=== PATIENT | male | born 1990 | race Caucasian/White ===

== ENCOUNTER 2024-09-02 04:39 | Inpatient (IN) ==
--- NOTE | 2024-09-02 04:47 | ED Physician Documentation ---
History of Present Illness Stated complaint Stated Complaint: ETOH Chief complaint Chief Complaint: Neuro Additonal information Additional information: 34-year-old with history of alcohol use disorder presents with alcohol withdrawal. He recently was drinking up to 1/5 of vodka daily. He was admitted to [facility] on August 31 in the afternoon and started on CIWA. It seems he has since received a total of 5 mg lorazepam since then. However, he has been having wor sening hallucinations, tremor, and tachycardia, so he is transferred here for further evaluation. He reports a possible history of alcohol withdrawal seizures. At this time, he is trying to leave to go be the best man his friend's wedding. Meds/Allgy Allergies Allergies Allergy/AdvReac Type Severity Reaction Status Date / Time No Known Drug Allergies Allergy Verified 09/02/24 04:50 PFSH Active Problems All Active Problems (Updated 09/02/24 @ 05:39 by Ryan Myers MD) Elevated liver enzymes (Acute) Hypomagnesemia (Acute) Alcohol withdrawal syndrome with complication (Acute) Medical History Medical History ETOH abuse Surgical History Surgical History (Updated 09/02/24 @ 05:26 by Jocelyn Kemp RN) No pertinent past surgical history Social History Social History (Updated 09/02/24 @ 05:26 by Jocelyn Kemp RN) Smoking Status: Former smoker Relationship: Do you feel safe in your home environment?: Yes Suffered physical, verbal, emotional, or financial abuse?: No Exam Exam Vital Signs: Vital Signs x48h Temp Pulse Resp BP Pulse Ox 09/02/24 05:45 64 18 116/83 94 09/02/24 05:30 67 13 93 09/02/24 05:25 111 H 13 110/75 93 09/02/24 05:10 82 13 98 09/02/24 04:39 36.9 C 110 H 16 150/86 H 97 Restless and trying to get out of bed. Bilateral nystagmus. Significant tremor of the hands bilaterally. Tachycardic. Abdomen soft and nontender. Speech intact, oriented to person, place, and time. States he is trying to leave to go be the best man at his friend's wedding. Results Vitals Vitals: Vital Signs - 24 hr 09/02/24 04:39 09/02/24 05:10 09/02/24 05:25 Temperature 36.9 C Temperature Source Temporal Artery Scan Pulse Rate 110 H 82 111 H Respiratory Rate 16 13 13 Blood Pressure 150/86 H 110/75 O2 Saturation 97 98 93 O2 Source Room air Room air Room air Pain Intensity 0 0 0 09/02/24 05:30 09/02/24 05:45 Temperature Temperature Source Pulse Rate 67 64 Respiratory Rate 13 18 Blood Pressure 116/83 O2 Saturation 93 94 O2 Source Room air Room air Pain Intensity 0 Oxygen O2 Source Room air EKG (time done) 4:55: EKG releavant findings:: EKG personally interpreted by author of this note. Relevant findings are: Rate: Rate (enter#) (87) Rhythm: NSR [place]: Normal Intervals: Normal HI QRS: QRS normal Ischemia: Normal ST segments Labs Labs: Laboratory Tests 09/02/24 05:18 WBC 5.2 RBC 3.48 L Hgb 10.9 L Hct 32.7 L MCV 94.0 MCH 31.3 H MCHC 33.3 RDW 15.3 H Plt Count 134 MPV 10.3 Neut # (Auto) 3.9 Lymph # (Auto) 0.7 L Harlan # (Auto) 0.6 Eos # (Auto) 0.1 Baso # (Auto) 0.0 Absolute Nucleated RBC 0.00 Nucleated RBC % 0.0 Sodium 134 L Potassium 3.6 Chloride 100 L Carbon Dioxide 23 Anion Gap 11.0 BUN 9 Creatinine 0.6 Estimated GFR (MDRD) 155 Glucose 77 Calcium 9.4 Magnesium 1.3 L Total Bilirubin 1.2 H AST 183 H ALT 84 H Alkaline Phosphatase 63 Total Protein 6.6 Albumin 4.2 Globulin 2.4 Albumin/Globulin Ratio 1.8 Ethyl Alcohol < 10.0 PD Medical Decision Making ED course ED course: Presents from [facility] Detox facility for worsening alcohol withdrawal symptoms. Upon arrival here, he is tremulous, tachycardic, and hallucinating. He was given 10 mg IV diazepam and 2 mg IV haloperidol with improvement of his symptoms. Hypomagnesemia was noted on labs, and repleted with 2 g of magnesium IV. He was admitted to the hospital for complicated alcohol withdrawal syndr ome. Discharge Plan Discharge Patient Disposition: 67 [facility] DC/Xfer Clinical Impression: Alcohol withdrawal syndrome with complication, Hypomagnesemia, Elevated liver enzymes Print Language: Greenlandic
[2024-09-02] MEDS: LACTATED RINGERS 1,000 ML IV STA (05:10)
[2024-09-02] MEDS: diazePAM INJ 5 MG/ML SYRINGE IVP STA (05:11)
[2024-09-02] MEDS: HALOPERIDOL 5 MG/ML VIAL IVP STA (05:12)
[2024-09-02 05:23] LABS: BASOPHILS % (AUTO) 0.6 %; EOSINOPHILS # (AUTO) 0.1 10^3/uL (0.0-0.7); HCT - HEMATOCRIT 32.7 % (42.0-52.0); HGB - HEMOGLOBIN 10.9 g/dL (14.0-18.0); LYMPHOCYTES # (AUTO) 0.7 10^3/uL (1.5-3.5); LYMPHOCYTES % (AUTO) 13.2 %; MEAN CORPUSCULAR HEMOGLOBIN 31.3 pg (27.0-31.0); MEAN CORPUSCULAR HGB CONC 33.3 g/dL (32.0-36.0); MEAN PLATELET VOLUME 10.3 fL (7.4-11.4); MONOCYTES # (AUTO) 0.6 10^3/uL (0.0-1.0); MONOCYTES % (AUTO) 10.9 %; NEUTROPHILS # (AUTO) 3.9 10^3/uL (1.5-6.6); NEUTROPHILS % (AUTO) 74.1 %; PLT - PLATELET COUNT 134 10^3/uL (130-450); RED BLOOD COUNT 3.48 10^6/uL (4.70-6.10); RED CELL DISTRIBUTION WIDTH 15.3 % (12.0-15.0); WHITE BLOOD COUNT 5.2 x10^3/uL (4.8-10.8)
[2024-09-02 05:29] LABS: MAGNESIUM 1.3 mg/dL (1.7-2.3)
[2024-09-02 05:35] LABS: ALBUMIN 4.2 g/dL (3.2-5.5); ALBUMIN/GLOBULIN RATIO 1.8 (1.0-2.2); ALKALINE PHOSPHATASE 63 IU/L (42-121); ALT ALANINE AMINOTRANSFERASE 84 IU/L (10-60); AST ASPARTATE AMINOTRANSFERASE 183 IU/L (10-42); BILIRUBIN,TOTAL 1.2 mg/dL (0.2-1.0); BUN - BLOOD UREA NITROGEN 9 mg/dL (6-20); CALCIUM 9.4 mg/dL (8.5-10.3); CARBON DIOXIDE - CO2 23 mmol/L (21-32); CHLORIDE 100 mmol/L (101-111); CREATININE 0.6 mg/dL (0.6-1.3); ETOH - ETHANOL < 10.0 mg/dL; GFR - MDRD 155 (>89); GLUCOSE 77 mg/dL (74-104); POTASSIUM 3.6 mmol/L (3.5-4.5); SODIUM 134 mmol/L (135-145); TOTAL PROTEIN 6.6 g/dL (6.4-8.9)
[2024-09-02] MEDS: THIAMINE INJ 100 MG, FOLIC ACID INJ 1 MG in SODIUM CHLORIDE 0.9% 1,000 ML IV STA (05:42)
[2024-09-02] MEDS: MAGNESIUM SULFATE 1 GM/2 ML VIAL IVP STA (05:43)
[2024-09-02] MEDS ORDERED: THIAMINE 100 MG/1 ML 2 ML MDV ONE ×2 (05:45→06:22)
[2024-09-02] MEDS: MAGNESIUM SULFATE 2 GRAM 2 GM/50 ML BAG IV SCH (05:46)
[2024-09-02] MEDS ORDERED: LORazepam 2 MG/ML VIAL IVP PRN (05:57)
--- NOTE | 2024-09-02 06:04 | HISTORY & PHYSICAL EXAMINATION ---
Chief Complaint Chief Complaint Chief Complaint: Alcohol withdrawl History of Present Illness History of Present Illness HPI Comment/Other: 34 y old male with PMH alcohol abuse brought in to the ER from outpatient drug rehab facility due to tremors, shakiness and alcohol withdrawl. Per ER physician, pt was hallucinating and tachycardic, IN ER, pt was given valium and haldol iv . Pt is confused and uanble to provide any histiory at this time Labs showed low magnesium which was replaced in ER Pt is admitted due to alcohol withdrawl Review of Systems Status of ROS: unobtainable due to mental status PFSH Active Problems All Active Problems (Updated 09/02/24 @ 05:39 by Ryan Myers MD) Elevated liver enzymes (Acute) Hypomagnesemia (Acute) Alcohol withdrawal syndrome with complication (Acute) Medical History Medical History ETOH abuse Surgical History Surgical History (Updated 09/02/24 @ 05:26 by Jocelyn Kemp RN) No pertinent past surgical history Social History Social History (Updated 09/02/24 @ 05:26 by Jocelyn Kemp RN) Smoking Status: Former smoker Relationship: Do you feel safe in your home environment?: Yes Suffered physical, verbal, emotional, or financial abuse?: No Meds/Allgy Allergies Allergies Allergy/AdvReac Type Severity Reaction Status Date / Time No Known Drug Allergies Allergy Verified 09/02/24 04:50 Exam Exam Vital Signs: Vital Signs x48h Temp Pulse Resp BP Pulse Ox 09/02/24 05:45 64 18 116/83 94 09/02/24 05:30 67 13 93 09/02/24 05:25 111 H 13 110/75 93 09/02/24 05:10 82 13 98 09/02/24 04:39 36.9 C 110 H 16 150/86 H 97 Constitutional normal general appearance HENMT normocephalic Eyes conjunctivae normal Chest inspection of chest normal Respiratory breath sounds equal bilaterally Cardiovascular normal heart rate noted Gastrointestinal abdomen normal to inspection Extremities normal to inspection Neurology Pt appears confused Skin no rash Conclusion/Plan Problem List (1) Alcohol withdrawal syndrome with complication: Plan: A: Alcohol withdrawl Hallucinations Tremors Hypomagnesemia Acute encephalopathy Plan: Admit to med surg with tele Start alcohol withdrawl protocol Replace mag Monitor electrolytes NPO Swallow eval start NS @ 100 cc/h DVT prophylaxic: SCD Full code Pt is admitted as inpatient as more than 2 midnight stay is expected Lab Results 09/02/24 05:18 09/02/24 05:18
[2024-09-02 06:18] LABS: INR 1.2 (0.8-1.2); PT - PROTHROMBIN TIME 12.9 secs (9.9-12.6)
[2024-09-02] MEDS: THIAMINE INJ 100 MG in SODIUM CHLORIDE 0.9% 50 ML IV STA (06:20)
[2024-09-02] MEDS: THIAMINE INJ 500 MG in SODIUM CHLORIDE 0.9% 50 ML IV STA (06:26)
[2024-09-02] MEDS ORDERED: ONDANSETRON 4 MG/2 ML VIAL IVP PRN (09:02)
[2024-09-02] MEDS: diazePAM 5 MG TABLET PO SCH ×2 (09:12→21:19)
[2024-09-02] MEDS: LORazepam 2 MG/ML VIAL IVP PRN ×2 (09:12→20:45)
[2024-09-02] MEDS: SODIUM CHLORIDE 0.9% 1,000 ML IV SCH (09:13)
[2024-09-02] MEDS: FAMOTIDINE 20 MG/2 ML VIAL IVP SCH (09:13)
[2024-09-02] MEDS: MULTIVITAMIN 10 ML, THIAMINE INJ 100 MG, FOLIC ACID INJ 1 MG in SODIUM CHLORIDE 0.9% 1,... IV SCH (09:13)
[2024-09-02] MEDS: SODIUM CHLORIDE FLUSH 0.9% 10 ML SYRINGE IVP SCH (09:15)
[2024-09-02 12:28] LABS: THC CANNABINOID SCREEN, URINE POSITIVE (NEGATIVE)
[2024-09-02 12:29] LABS: AMPHETAMINE SCREEN,URINE NEGATIVE (NEGATIVE); BARBITURATE SCREEN,UR NEGATIVE (NEGATIVE); BENZODIAZEPINES SCREEN, URINE POSITIVE (NEGATIVE); BUPRENORPHINE SCREEN, URINE NEGATIVE (NEGATIVE); COCAINE SCREEN URINE NEGATIVE (NEGATIVE); METHADONE SCREEN, URINE NEGATIVE (NEGATIVE); METHAMPHETAMINES SCREEN, URINE NEGATIVE (NEGATIVE); OPIATE SCREEN, URINE NEGATIVE (NEGATIVE); OXYCODONE SCREEN, URINE NEGATIVE (NEGATIVE); TRICYCLIC ANTIDEPRESSANT,URINE NEGATIVE (NEGATIVE)
[2024-09-02] MEDS: SODIUM CHLORIDE FLUSH 0.9% 10 ML SYRINGE IVP PRN (20:46)
[2024-09-02] MEDS: LACTATED RINGERS 1,000 ML IV SCH (21:19)
[2024-09-03] MEDS ORDERED: DEXMEDETOMIDINE 400 MCG/100 ML 100 ML IV PRN (00:49)
[2024-09-03] MEDS: chlordiazePOXIDE 25 MG CAPSULE PO SCH (00:57)
[2024-09-03 07:56] LABS: HCT - HEMATOCRIT 34.2 % (42.0-52.0); MEAN CORPUSCULAR HEMOGLOBIN 31.6 pg (27.0-31.0); MEAN CORPUSCULAR HGB CONC 32.2 g/dL (32.0-36.0); MEAN CORPUSCULAR VOLUME 98.3 fL (80.0-94.0); MEAN PLATELET VOLUME 10.6 fL (7.4-11.4); RED BLOOD COUNT 3.48 10^6/uL (4.70-6.10); RED CELL DISTRIBUTION WIDTH 15.2 % (12.0-15.0); WHITE BLOOD COUNT 5.3 x10^3/uL (4.8-10.8)
[2024-09-03 08:26] LABS: ALBUMIN 4.1 g/dL (3.2-5.5); ALBUMIN/GLOBULIN RATIO 1.8 (1.0-2.2); BILIRUBIN,TOTAL 1.1 mg/dL (0.2-1.0); CALCIUM 8.9 mg/dL (8.5-10.3); CREATININE 0.6 mg/dL (0.6-1.3); MAGNESIUM 1.7 mg/dL (1.7-2.3); POTASSIUM 3.4 mmol/L (3.5-4.5); TOTAL PROTEIN 6.4 g/dL (6.4-8.9)
[2024-09-03] MEDS: PRENATAL VITAMIN TABLET PO SCH (08:47)
[2024-09-03] MEDS: diazePAM 5 MG TABLET PO SCH (08:47)
[2024-09-03] MEDS: THIAMINE 100 MG TABLET PO SCH (08:47)
[2024-09-03] MEDS: LORazepam 1 MG TABLET PO PRN ×3 (09:07→18:07)
--- NOTE | 2024-09-03 09:24 | PROVIDER PROGRESS NOTE ---
Current Medications Current Medications Current Medications: Current Medications Generic Name Dose Route Start Last Admin Trade Name Freq PRN Reason Stop Dose Admin Diazepam 5 mg 09/03/24 09:00 09/03/24 08:47 Diazepam 5 Mg Tablet PO 5 mg BID PARK Administration Famotidine 20 mg 09/02/24 09:02 09/03/24 08:47 Famotidine 20 Mg/2 Ml Vial IVP 20 mg BID PARK Administration Lorazepam 2 - 20 mg 09/02/24 19:37 09/03/24 01:51 Lorazepam 2 Mg/Ml Vial IVP 4 mg Q15M PRN Administration RASS > 0 Protocol Lorazepam 2 - 20 mg 09/03/24 08:17 09/03/24 09:07 Lorazepam 1 Mg Tablet PO 2 mg Q15M PRN Administration RASS > 0 Protocol Ondansetron HCl 4 mg 09/02/24 09:02 Ondansetron 4 Mg/2 Ml Vial IVP Q6HR PRN Nausea / Vomiting Multivit/Folic Acid/Iron 1 tab 09/03/24 09:00 09/03/24 08:47 Vitamin Tablet PO 1 tab DAILYWM PARK Administration Sodium Chloride 10 ml 09/02/24 09:02 09/02/24 21:20 Sodium Chloride Flush 0.9% 10 Ml Syringe IVP 10 ml PRN PRN Administration NEEDED PER PROVIDER ORDERS Sodium Chloride 10 ml 09/02/24 09:02 09/03/24 08:48 Sodium Chloride Flush 0.9% 10 Ml Syringe IVP 10 ml 0100,0900,1700 PARK Administration Thiamine HCl 100 mg 09/03/24 09:00 09/03/24 08:47 Thiamine 100 Mg Tablet PO 100 mg DAILY PARK Administration Objective Vital Signs/Intake & Output Vital Signs: Vital Signs x48h Temp Pulse Resp BP Pulse Ox 09/03/24 09:00 65 21 131/94 H 09/03/24 08:00 98.4 F 69 16 117/93 H 99 09/03/24 07:00 53 L 15 127/83 09/03/24 06:00 56 L 17 129/88 09/03/24 05:00 55 L 18 119/86 09/03/24 04:11 98.4 F 53 L 17 130/92 H 98 09/03/24 03:00 53 L 16 132/85 H 09/03/24 02:00 54 L 20 148/75 H 95 Intake & Output: Intake & Output 08/31/24 09/01/24 09/02/24 09/03/24 23:59 23:59 23:59 23:59 Intake Total 2755.2 / 2755.2 1595 / 1595 Output Total 825 / 825 1250 / 1250 Balance 1930.2 / 1930.2 345 / 345 Weight (kg) 65.5 kg Lab Results 09/03/24 07:48 09/03/24 07:48 Other Labs: Lab Results x24hrs 09/03/24 09/02/24 09/02/24 Range/Units 07:48 19:50 12:04 WBC 5.3 (4.8-10.8) x10^3/uL RBC 3.48 L (4.70-6.10) 10^6/uL Hgb 11.0 L (14.0-18.0) g/dL Hct 34.2 L (42.0-52.0) % MCV 98.3 H (80.0-94.0) fL MCH 31.6 H (27.0-31.0) pg MCHC 32.2 (32.0-36.0) g/dL RDW 15.2 H (12.0-15.0) % Plt Count 139 (130-450) 10^3/uL MPV 10.6 (7.4-11.4) fL Sodium 137 (135-145) mmol/L Potassium 3.4 L (3.5-4.5) mmol/L Chloride 104 (101-111) mmol/L Carbon Dioxide 24 (21-32) mmol/L Anion Gap 9.0 (6-13) BUN 5 L (6-20) mg/dL Creatinine 0.6 (0.6-1.3) mg/dL Estimated GFR (MDRD) 155 (>89) Glucose 75 (74-104) mg/dL Calcium 8.9 (8.5-10.3) mg/dL Magnesium 1.7 (1.7-2.3) mg/dL Total Bilirubin 1.1 H (0.2-1.0) mg/dL AST 138 H (10-42) IU/L ALT 71 H (10-60) IU/L Alkaline Phosphatase 60 (42-121) IU/L Total Protein 6.4 (6.4-8.9) g/dL Albumin 4.1 (3.2-5.5) g/dL Globulin 2.3 (2.1-4.2) g/dL Albumin/Globulin Ratio 1.8 (1.0-2.2) Nasal Screen MRSA (PCR) NEGATIVE (NEGATIVE) Urine Opiates Screen NEGATIVE (NEGATIVE) Ur Buprenorphine Scrn NEGATIVE (NEGATIVE) Ur Oxycodone Screen NEGATIVE (NEGATIVE) Urine Methadone Screen NEGATIVE (NEGATIVE) Ur Barbiturates Screen NEGATIVE (NEGATIVE) Ur Tricyclics Screen NEGATIVE (NEGATIVE) Ur Phencyclidine Scrn NEGATIVE (NEGATIVE) Ur Amphetamine Screen NEGATIVE (NEGATIVE) U Methamphetamines Scrn NEGATIVE (NEGATIVE) U Benzodiazepines Scrn POSITIVE H (NEGATIVE) Urine Cocaine Screen NEGATIVE (NEGATIVE) U Cannabinoids Screen POSITIVE H (NEGATIVE) Ur Drug Screen Comment CUTOFF CONC BELOW: Assessment/Plan Problem List (1) Alcohol withdrawal syndrome with complication:
--- NOTE | 2024-09-03 11:53 | PHARMACY PROGRESS NOTE ---
Best Possible Medication History Admit Date and Time: 09/02/24 [id number] Home Medications Medication Instructions Recorded Confirmed Type No Known Home Medications 09/03/2412/20 History Processed by: Pharmacy (Medication reconciliation completed by Electrical Controls AssemblerZandra) Medications reviewed in ED?: No Medication History completed: Yes Patient Interview: Completed Secondary Source(s): Insurance records [facility] Statement: As the person ultimately responsible for medication therapy, providers are able to order a medication from an existing home medication list in [facility] via the "Reconcile Routine" prior to Confirmation of that medication by java support engineer. Such practice is discouraged except when the physician, in their clinical judgment, deems that a medical need exists for a medication without regard to previous use.
[2024-09-03] MEDS: MAGNESIUM OXIDE 400 MG TABLET PO SCH (12:04)
[2024-09-03] MEDS: POTASSIUM CHLORIDE 20 MEQ TABLET PO SCH ×2 (12:04→14:49)
--- NOTE | 2024-09-03 15:40 | PROVIDER PROGRESS NOTE ---
Subjective Prog Note Date Prog Note Date: 09/03/24 Prog Note Time: 16:42 Subjective Pt reports feeling: Improved Subjective: 34 year old male with PMHx of alcohol abuse presents from [facility] 09/02/24 for alcohol withdrawal symptoms. Patient initially presented with worsening hallucinations, tremors, tachycardia. Patient was given 10mg IV diazepam and 2mg IV haloperidol in the ER with managent of symptoms. Currently on diazepam 5mg PO BID and lorazepam 2mg Q4hrs PRN. Patient states he is feeling better compared to initial presentation. Denies diaphoresis. States tremors have improved and admits to vivid nightmares but denies visual/auditory hallucinations. States he is overall feeling less anxious. Reports last drink was prior to entering [facility], where he entered with a KIP of 0.29 (per patient). States he is ready to give up alcohol as it has caused him to lose jobs, his girlfriend, and his apartment. States he is currently living with his dad, who will drink about 10 black russians a day. [facility] dad has not been the best support system after recent life changes and has contributed to him drinking more alcohol. States he was drinking 10-12 drinks a day, noting drinks as long pulls from either a handle of Vodka or Fireball. Patient is hesitant to enter a 30 day facility as he adamantly expresses his need to find a job and pay his bills. Current Medications Current Medications Current Medications: Current Medications Generic Name Dose Route Start Last Admin Trade Name Freq PRN Reason Stop Dose Admin Diazepam 5 mg 09/03/24 09:00 09/03/24 08:47 Diazepam 5 Mg Tablet PO 5 mg BID PARK Administration Famotidine 20 mg 09/02/24 09:02 09/03/24 08:47 Famotidine 20 Mg/2 Ml Vial IVP 20 mg BID PARK Administration Lorazepam 2 - 20 mg 09/03/24 11:06 09/03/24 14:47 Lorazepam 1 Mg Tablet PO 6 mg Q4HR PRN Administration RASS > 0 Protocol Magnesium Oxide 400 mg 09/03/24 11:00 09/03/24 12:04 Magnesium Oxide 400 Mg Tablet PO 09/03/24 17:01 400 mg Q6H PARK Administration Protocol Ondansetron HCl 4 mg 09/02/24 09:02 Ondansetron 4 Mg/2 Ml Vial IVP Q6HR PRN Nausea / Vomiting Multivit/Folic Acid/Iron 1 tab 09/03/24 09:00 09/03/24 08:47 Vitamin Tablet PO 1 tab DAILYWM PARK Administration Sodium Chloride 10 ml 09/02/24 09:02 09/02/24 21:20 Sodium Chloride Flush 0.9% 10 Ml Syringe IVP 10 ml PRN PRN Administration NEEDED PER PROVIDER ORDERS Sodium Chloride 10 ml 09/02/24 09:02 09/03/24 08:48 Sodium Chloride Flush 0.9% 10 Ml Syringe IVP 10 ml 0100,0900,1700 PARK Administration Thiamine HCl 100 mg 09/03/24 09:00 09/03/24 08:47 Thiamine 100 Mg Tablet PO 100 mg DAILY PARK Administration Objective Vital Signs/Intake & Output Reviewed Vital Signs: Yes Vital Signs: Vital Signs x48h Temp Pulse Resp BP Pulse Ox 09/03/24 15:00 76 18 135/96 H 96 09/03/24 14:00 67 15 130/83 95 09/03/24 13:00 74 18 120/82 94 09/03/24 12:00 37.2 C 123 H 24 132/97 H 97 09/03/24 11:00 70 17 114/93 H 09/03/24 10:42 97 09/03/24 10:00 77 16 129/93 H 09/03/24 09:00 65 21 131/94 H 09/03/24 08:00 36.9 C 69 16 117/93 H 99 Intake & Output: Intake & Output 08/31/24 09/01/24 09/02/24 09/03/24 23:59 23:59 23:59 23:59 Intake Total 2755.2 / 2755.2 1984 Output Total 825 / 825 1750 / 1750 Balance 1930.2 / 1930.2 235 / 235 Weight (kg) 65.5 kg Objective General Appearance: positive Alert and Mild distress Eyes Bilateral: positive Normal inspection, PERRL, EOMI and No scleral icterus Neck: positive Nml inspection Respiratory: positive Chest non-tender, No respiratory distress and Breath sounds nml Cardiovascular: positive Regular rate & rhythm, No murmur and No gallop Abdomen: positive Non-tender, No organomegaly and Nml bowel sounds Back: positive Nml inspection Skin: positive Color nml and Other (Ecchymosis noted to B/L shins around knee cap. ) Extremities: positive Non-tender; negative Calf tenderness Neurologic/Psychiatric: positive Oriented x3 and Other (Mildly restless. Improving tremor of hands that will occasionally be distractable. ) Lab Results 09/03/24 07:48 09/03/24 07:48 Other Labs: Lab Results x24hrs 09/03/24 09/02/24 Range/Units 07:48 19:50 WBC 5.3 (4.8-10.8) x10^3/uL RBC 3.48 L (4.70-6.10) 10^6/uL Hgb 11.0 L (14.0-18.0) g/dL Hct 34.2 L (42.0-52.0) % MCV 98.3 H (80.0-94.0) fL MCH 31.6 H (27.0-31.0) pg MCHC 32.2 (32.0-36.0) g/dL RDW 15.2 H (12.0-15.0) % Plt Count 139 (130-450) 10^3/uL MPV 10.6 (7.4-11.4) fL Sodium 137 (135-145) mmol/L Potassium 3.4 L (3.5-4.5) mmol/L Chloride 104 (101-111) mmol/L Carbon Dioxide 24 (21-32) mmol/L Anion Gap 9.0 (6-13) BUN 5 L (6-20) mg/dL Creatinine 0.6 (0.6-1.3) mg/dL Estimated GFR (MDRD) 155 (>89) Glucose 75 (74-104) mg/dL Calcium 8.9 (8.5-10.3) mg/dL Magnesium 1.7 (1.7-2.3) mg/dL Total Bilirubin 1.1 H (0.2-1.0) mg/dL AST 138 H (10-42) IU/L ALT 71 H (10-60) IU/L Alkaline Phosphatase 60 (42-121) IU/L Total Protein 6.4 (6.4-8.9) g/dL Albumin 4.1 (3.2-5.5) g/dL Globulin 2.3 (2.1-4.2) g/dL Albumin/Globulin Ratio 1.8 (1.0-2.2) Nasal Screen MRSA (PCR) NEGATIVE (NEGATIVE) Assessment/Plan Problem List (1) Alcohol withdrawal syndrome with complication: Impression: -Patient initially presented 09/02/24 from [facility] outpatient detox, entered on 08/31/24, with complicated alcohol withdrawal. He was given 10mg IV diazepam and 2mg IV haloperidol with management of symptoms. Patient is still moderately tremulous and mildly hypertensive but currently without visual/auditory hallucinations, disorientation, hyperthermia, or diaphoresis. -Current CIWA score is 6 and patient is occasionally agitated but redirectable. No evidence of seizure activity and both magnesium and thiamine have been supplemented. Patient to continue diazepam 5mg PO BID with expectation to transition to QD tomorrow as tolerated. Continue Lorazepam 20mg Q4H PRN. Patient was counseled benefits of 30 day rehabilitation after discharge for sustainable success with alcohol abstinence. (2) Hypomagnesemia: Impression: -Likely secondary to alcohol-induced tubular dysfunction. Magnesium has been replaced and hypomagnesemia resolved on repeat labs today (1.3 to 1.7). Will continue to monitor. (3) Elevated liver enzymes: Impression: -Most likely secondary to alcohol dependency. Values have improved over the last 24 hours. Continue to monitor. (4) Hypokalemia: Impression: -Likely due to nutritional deficiency from alcohol abuse. Patient ordered 20 meq Potassium Chloride PO Q2h. Will monitor.
[2024-09-03] MEDS: cloNIDine 0.1 MG TABLET PO ONE (17:06)
[2024-09-03] MEDS: GABAPENTIN 300 MG CAPSULE PO SCH (18:07)
[2024-09-03 19:54] LABS: POTASSIUM 4.3 mmol/L (3.5-4.5)
[2024-09-04 04:51] LABS: CALCIUM 9.3 mg/dL (8.5-10.3); CREATININE 0.5 mg/dL (0.6-1.3); POTASSIUM 3.8 mmol/L (3.5-4.5)
[2024-09-04 05:00] LABS: CALCIUM, IONIZED 1.23 mmol/L (1.09-1.30); VBG PH 7.426 (7.31-7.41)
[2024-09-04 05:28] LABS: PHOSPHORUS 5.2 mg/dL (2.5-5.0)
[2024-09-04] MEDS: POTASSIUM CHLORIDE 20 MEQ TABLET PO ONE (08:00)
--- NOTE | 2024-09-04 10:55 | TELEPSYCH PHYS NOTE ---
[facility] Tele[facility] Consult Consult Date: 09/04/24 Name of Referring Provider:: Estevan Romo Reason for Consult: Complicated W/D Suicide Risk Sreening (ASQ Tool) In the past few weeks, have you wished you were ?: No In the past few weeks, have you felt that you or your family would be better off if you were ?: No In the past week, have you been having thoughts about killing yourself?: No Have you ever tried to kill yourself?: No Assessment Language: St Helen[place] Route Service Manager Required: No Cultural, Yazidism or Spiritual Preferences: None mentioned Chief Complaint: Patient states, "Alcohol abuse." History of Present Illness: Patient endorses that he is here because he was having some very hard to manage medical concerns while in detox and so was brought to the hospital. 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 He has been trying to get a job but has not been getting any calls back. He has limited connections here and they are sober. He notes that this may be a good thing now, as he would like to stop drinking. He says that he is 8/10 for wanting to stop drinking at this time. "To get to a 10 would mean "not having the shakes, to get to a 9/10 it would be not spending so much money on alcohol." He is at a 5 in terms of his feeling that he can do it. He feels the habit of it is just very hard to break. He has been drinking daily for 15 years."I have wanted to stop and have tried to lower myself down but that has not worked." He has never done treatment before and he is going to go now. If 10 is the worst he would rate his level of depression at a 6/10, and his anxiety at a 6/10. He tends to worry most is finances, because he has a lot of debt. He has no job and has been looking. He was recently evicted which he blames on his roommate's gambling. He also broke up with his girlfriend. He used to work at [employer] in [employer]. When asked about his sleep, he says, "I sleep fine. It is tough for me to get to sleep. Once I get to sleep, everything is fine." He says that he is eating well. Patient says that he recently had AVH "for the first time." This happened as part of the withdrawal here at the hospital. Suicide Ideation - Homicide Ideation - Self Harm: SI- Denies HI- Denies Self-harm- Denies Psychiatric History - Treatment History: DX- Alcohol abuse - no OP IP or meds in the past Community Resources Accessed: None Family Psych History/ History of suicide: Grandmother -dementia Medication & Allergies Ambulatory Orders Medication Instructions Recorded Confirmed No Known Home Medications 09/03/2412/20 Allergies Allergy/AdvReac Type Severity Reaction Status Date / Time No Known Drug Allergies Allergy Verified 09/02/24 04:50 Drug & Alcohol History Does patient have Drug/ETOH history or addictive behavior?: Yes Use: Uses substance without health or social issues: Amphetamine and Cocaine Use Issues: Intoxication, Delirium and Sleep Disorder Abuse: Recurrent use of substance despite neg consequences: Alcohol Abuse Issues: Intoxication, Delirium and Sleep Disorder Dependence: Experiences withdrawal or developed tolerances: Alcohol Dependence Issues: Intoxication, Delirium, Sleep Disorder and Withdrawal Trauma History of trauma, abuse, neglect, or exploitation (Notes): Denies Personal Information Does the patient have a history or present tendencies for violence?: None History or present tendencies for violence (Notes): Denies Services History: Denies Does patient have any Legal Charges or Investigations?: No Legal Charges or Investigations (Notes): Denies Environment & Living Situation - Social, Peer-Group (Note): At home Environment & Living Situation - Social, Peer-Group (Notes): with dad Few close social supports or friends but they are sober Marital Status - Family Circumstances: Never , no children Stressors - Financial Concerns: See HPI 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[employer] Collateral - Interdisciplinary Input: Hospital notes/records reviewed Medical History Psychiatric: reports Depression Neurological: reports None Eyes, Ears, Nose, Throat: reports None Cardiovascular: reports None Respiratory: reports None Gastrointestinal: reports None Urinary: reports None ESOL TEACHER: reports None Musculoskeletal: reports None Skin: reports None Mental Status Exam Appearance and Attire: reclining in a chair in a hospital gown to talk with provider Attitude and Behavior: Calm and cooperative Speech: Appropriate rate, tone and volume Affect and Mood: Moderate depression and anxiety reported and affect is appropriate to situation Association and Thought Process: Logical and linear Thought Content: No evidence of any obsessions of delusions Perception: Denies any current AVH and none noted Sensorium, memory and orientation: Alert and oriented x 4 Intellectual - Cognitive functioning: No deficits noted Insight and Judgement: Insight is good and judgment good at this time Emotional and Behavioral Functioning: Limited distress tolerance skills, self medicating with alcohol Ability to Self-Care: Fair Personal Goals Short-term Goals: "sobriety" Long-term Goals: friends Risk/Protective Factors Risk Factors: Trigger events leading to humiliation, shame and/or despair, Substance intoxication or withdrawal, Social Isolation and Perceived burden on other Protective Factors / Internal: Identifies reasons for living Protective Factors / External: Supportive social network of family or friends Plan Impression/Risk Assessment: This patient is a 34-year-old male who is coming into the emergency room after being medically discharged from his detox center due to complicated withdrawal symptoms. Patient states that he is feeling committed at this time to getting treatment and getting sober after 15 years of drinking daily. Patient states that he has tried to cut down on his own unsuccessfully. He recently moved in with his father due to financial concerns and has had difficulties finding a job here. He also reports very limited support systems in the area, though it is the area he grew up and he has not been in touch with many of his friends from there. Patient does have a couple of friends there who are sober which he acknowledges will be a good thing in his future if he is to maintain sobriety. Patient does state that his father is a drinker however his father has made mention that him getting help might inspire him to also get help. This patient has no history of mental health treatment and is reporting only moderate depression and anxiety related to his situation financially. He denies any suicidal ideation, homicidal ideation or auditory or visual hallucinations. Treatment - Therapy Recommendations: This patient would like to attend a residential treatment program for treatment of his alcohol use disorder. Patient is feeling moderately confident that he can do it while he is feeling motivated at an 8 out of 10 to make the changes he needs to to maintain sobriety. Pharmacological Recommendations: None at this time. Problem List (1) Alcohol withdrawal syndrome with complication: (2) Hypomagnesemia: (3) Elevated liver enzymes: (4) Hypokalemia: Time Spent & Provider Location Telepsych consultation conducted via videoconferencing: Yes List names and roles of persons who participated in consult: ARNOLDO Majano Telepsych Provider Location: [place], [place] Time Spent (Minutes): 60 PFSH Active Problems All Active Problems (Updated 09/03/24 @ 16:49 by Michael Huerta) Hypokalemia (Acute) Elevated liver enzymes (Acute) Hypomagnesemia (Acute) Alcohol withdrawal syndrome with complication (Acute) Medical History Medical History ETOH abuse Surgical History Surgical History (Updated 09/02/24 @ 05:26 by Jocelyn Kemp RN) No pertinent past surgical history Social History Social History (Updated 09/02/24 @ 05:26 by Jocelyn Kemp, RN) Smoking Status: Current some day smoker Number of Years Smoked: 15 How many cigarettes a day do you smoke? (20 cigarettes=1 Pk): 1 Second hand tobacco smoke exposure: Yes Do you dip or chew tobacco?: Yes Do you vape?: No Patient requests smoking cessation consult: No Initiate information on smoking cessation: No Relationship: Do you feel safe in your home environment?: Yes Suffered physical, verbal, emotional, or financial abuse?: No Substance Use: declined to answer
--- NOTE | 2024-09-04 14:03 | PROVIDER PROGRESS NOTE ---
Subjective Prog Note Date Prog Note Date: 09/04/24 Prog Note Time: 14:01 Subjective Pt reports feeling: Improved Subjective: Patient is feeling better with improvement in tremors. However, he is having difficulty with gait and unsteady on his feet. He also admits to continued intermittent episodes of visual hallucinations, possibly after effects of vivid nightmares. Current Medications Current Medications Current Medications: Current Medications Generic Name Dose Route Start Last Admin Trade Name Freq PRN Reason Stop Dose Admin Famotidine 20 mg 09/04/24 21:00 Famotidine 20 Mg Tablet PO BID PARK Gabapentin 300 mg 09/03/24 18:00 09/04/24 05:44 Gabapentin 300 Mg Capsule PO 300 mg TID PARK Administration Ondansetron HCl 4 mg 09/02/24 09:02 Ondansetron 4 Mg/2 Ml Vial IVP Q6HR PRN Nausea / Vomiting Multivit/Folic Acid/Iron 1 tab 09/03/24 09:00 09/04/24 08:00 Vitamin Tablet PO 1 tab DAILYWM PARK Administration Sodium Chloride 10 ml 09/02/24 09:02 09/03/24 21:26 Sodium Chloride Flush 0.9% 10 Ml Syringe IVP 10 ml PRN PRN Administration NEEDED PER PROVIDER ORDERS Sodium Chloride 10 ml 09/02/24 09:02 09/04/24 08:00 Sodium Chloride Flush 0.9% 10 Ml Syringe IVP 10 ml 0100,0900,1700 PARK Administration Thiamine HCl 100 mg 09/03/24 09:00 09/04/24 08:00 Thiamine 100 Mg Tablet PO 100 mg DAILY PARK Administration Objective Vital Signs/Intake & Output Reviewed Vital Signs: Yes Vital Signs: Vital Signs x48h Temp Pulse Resp BP Pulse Ox 09/04/24 13:00 104 H 19 128/89 97 09/04/24 12:00 36.6 C 113 H 19 119/90 95 09/04/24 11:00 94 16 127/93 H 95 09/04/24 10:00 76 16 129/93 H 97 09/04/24 09:00 83 19 123/90 99 09/04/24 08:00 98.3 C H 88 14 117/80 97 09/04/24 07:00 70 13 122/91 H Intake & Output: Intake & Output 09/01/24 09/02/24 09/03/24/10/25 23:59 23:59 23:59 23:59 Intake Total 2755.2 / 2755.2 2034 988 / 988 Output Total 825 / 825 2250 / 2250 Balance 1930.2 / 1930.2 -215 / -215 988 / 988 Weight (kg) 65.5 kg Objective General Appearance: positive Alert and Mild distress Eyes Bilateral: positive Normal inspection, PERRL, EOMI and No scleral icterus Neck: positive Nml inspection Respiratory: positive Chest non-tender, No respiratory distress and Breath sounds nml Cardiovascular: positive Regular rate & rhythm, No murmur and No gallop Abdomen: positive Non-tender, No organomegaly and Nml bowel sounds Back: positive Nml inspection Skin: positive Color nml and Other (Ecchymosis noted to B/L shins around knee cap. ) Extremities: positive Non-tender; negative Calf tenderness Neurologic/Psychiatric: positive Oriented x3 and Other (Mildly restless. Improving tremor of hands that will occasionally be distractable. ) Lab Results 09/03/24 07:48 09/04/24 11:58 Other Labs: Lab Results x24hrs 09/04/24 09/04/24 09/03/24 Range/Units 11:58 04:23 19:29 VBG pH 7.426 H (7.31-7.41) Ionized Calcium 1.23 (1.09-1.30) mmol/L Sodium 138 (135-145) mmol/L Potassium 4.0 3.8 4.3 (3.5-4.5) mmol/L Chloride 106 (101-111) mmol/L Carbon Dioxide 23 (21-32) mmol/L Anion Gap 9.0 (6-13) BUN 7 (6-20) mg/dL Creatinine 0.5 L (0.6-1.3) mg/dL Estimated GFR (MDRD) 192 (>89) Glucose 100 (74-104) mg/dL Calcium 9.3 (8.5-10.3) mg/dL Phosphorus 5.2 H (2.5-5.0) mg/dL Magnesium 2.0 2.0 (1.7-2.3) mg/dL Assessment/Plan Problem List (1) Alcohol withdrawal syndrome with complication: Impression: -Patient initially presented 09/02/24 from [facility] outpatient detox, entered on 08/31/24, with complicated alcohol withdrawal. He was given 10mg IV diazepam and 2mg IV haloperidol with management of symptoms. -Patient with significant improvement in tremors and currently without disorientation, hyperthermia, or diaphoresis. Will D/C diazepam and lorazepam as he is no longer is active withdrawal. However, he was noted to have possible visual hallucinations but unclear as patient is a somewhat poor historian. Psych eval was ordered to rule out non-alcohol withdrawal etiology of hallucinations and patient was cleared. PT/OT was ordered to evaluate unsteady gait and was not cleared for D/C as he is unable to ambulate on his own. Instability and stregnth is expected to improve within the next few days and will re-assess for discharge at that time. (2) Hypomagnesemia: Impression: -Likely secondary to alcohol-induced tubular dysfunction. Resolved after replacement. (3) Elevated liver enzymes: Impression: -Most likely secondary to alcohol dependency. (4) Hypokalemia: Impression: -Likely due to nutritional deficiency from alcohol abuse. Resolved after replacement, last value today of 4.0.
--- NOTE | 2024-09-04 14:35 | PT Plan of Care ---
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 Admitted with etoh withd, cleared for PT eval by hospitalist. Pt is indep at baseline. Upon PT eval, pt is A&Ox2-3 with moderate tremors in all 4 limbs. Able to manipulate phone and other ADL items with moderate coordination deficits. HR is uncontrolled ranging from 83-164bpm with static standing. Unable to safely progress mobility assessment d/t tachycardia. Overall requiring modA d/t retropulsion and ataxia. Given severity of ataxia and mobility impairments, plan to continue with acute PT up to 3x/wk to progress gait training once HR is controlled. Anticipate symptoms will resolve as he becomes medically stable and pt can dc home. If symptoms persist, pt will require further rehab. Will update recs closer to time of dc. Goals Improve bed mobility to: Independent Improve supine to sit to: Independent Improve sit to stand to: Independent Improve pivot transfer ability Independent to: Improve sit to supine to: Independent Improve gait ability to: Ind PT Plan of Care Duration 3x/wk Discharge Recommendations Discharge Location home v SNF Transport Needs at Discharge B.L.[facility] Other if pt dc'd today, would require BLS d/t tachycardia and ataxia. anticipate he will progress to POV
--- NOTE | 2024-09-04 14:36 | OT Plan of Care ---
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 Managed in ICU 2/ 2 active hallucinations, tachycardia, and unsteady gait. Cleared for therapy evaluation. Met supine in bed on RA Pt HR 90s at rest, max 160 with upright standing. Spo2 above 90%. Asymptomatic. A&Ox4, follows all commands. Tremulous throughout B UE and LE with assessment . Performed supine to sit MIN A, MOD A x2 sit to stand using RW Retropulsive requiring cues for upright posture and safety. Tachycardic to 160 laid back supine with recovery to 80bmp. RN updated. Currently MIN-MOD A ADLs with increased time. Overall presents with decreased endurance, activity tolerance and ADL status. Will benefit from cont OT services during acute stay. Rec d/c return to inpt rehab once symptoms resolve and can mobility safely. Goals - Activities of Daily Living Improve Upper Extremity Independent Dressing to: Improve Lower Extremity Independent Dressing to: Improve Grooming/Hygiene to: Independent Improve Bathing to: Independent Improve Toileting to: Independent Plan Treatment Frequency 2 to 3 times/week Duration Until discharge -Discharge Recommendations Discharge Location inpt rehab Transport Needs at Discharge [facility].L[facility]
[2024-09-04 15:21] VITALS: BP 128/96
[2024-09-04] MEDS: FAMOTIDINE 20 MG TABLET PO SCH (20:55)
[2024-09-05 05:24] LABS: CALCIUM 10.1 mg/dL (8.5-10.3); CREATININE 0.7 mg/dL (0.6-1.3); POTASSIUM 5.1 mmol/L (3.5-4.5)
[2024-09-05 05:27] LABS: CALCIUM, IONIZED 1.26 mmol/L (1.09-1.30); VBG PH 7.344 (7.31-7.41)
[2024-09-05] MEDS: chlordiazePOXIDE 25 MG CAPSULE PO SCH (09:11)
--- NOTE | 2024-09-05 17:56 | PROVIDER PROGRESS NOTE ---
Subjective Prog Note Date Prog Note Date: 09/05/24 Prog Note Time: 09:45 Subjective Pt reports feeling: Improved Subjective: Patient is feeling better with improvement in tremors. Current Medications Current Medications Current Medications: Current Medications Generic Name Dose Route Start Last Admin Trade Name Freq PRN Reason Stop Dose Admin Chlordiazepoxide HCl 25 mg 09/05/24 09:00 09/05/24 17:16 Chlordiazepoxide 25 Mg Capsule PO 25 mg Q6HR PARK Administration Famotidine 20 mg 09/04/24 21:00 09/05/24 08:10 Famotidine 20 Mg Tablet PO 20 mg BID PARK Administration Gabapentin 300 mg 09/03/24 18:00 09/05/24 15:02 Gabapentin 300 Mg Capsule PO 300 mg TID PARK Administration Nicotine 1 patch 09/05/24 18:00 Nicotine 14 Mg Patch TOP DAILY PARK Ondansetron HCl 4 mg 09/02/24 09:02 Ondansetron 4 Mg/2 Ml Vial IVP Q6HR PRN Nausea / Vomiting Multivit/Folic Acid/Iron 1 tab 09/03/24 09:00 09/05/24 08:10 Vitamin Tablet PO 1 tab DAILYWM PARK Administration Sodium Chloride 10 ml 09/02/24 09:02 09/03/24 21:26 Sodium Chloride Flush 0.9% 10 Ml Syringe IVP 10 ml PRN PRN Administration NEEDED PER PROVIDER ORDERS Sodium Chloride 10 ml 09/02/24 09:02 09/05/24 15:59 Sodium Chloride Flush 0.9% 10 Ml Syringe IVP 10 ml 0100,0900,1700 PARK Administration Thiamine HCl 100 mg 09/03/24 09:00 09/05/24 08:10 Thiamine 100 Mg Tablet PO 100 mg DAILY PARK Administration Objective Vital Signs/Intake & Output Reviewed Vital Signs: Yes Vital Signs: Vital Signs x48h Temp Pulse Resp BP Pulse Ox 09/05/24 15:47 36.9 C 80 20 114/83 98 09/05/24 13:02 36.8 C 87 16 124/87 99 Intake & Output: Intake & Output 09/02/24 09/03/24 09/04/24 09/05/24 23:59 23:59 23:59 23:59 Intake Total 2755.2 / 2755.2 2034 / 2034 1228 / 1228 320 / 320 Output Total 825 / 825 2250 / 2250 Balance 1930.2 / 1930.2 -215 / -215 1228 / 1228 320 / 320 Weight (kg) 65.5 kg Objective General Appearance: positive No acute distress and Alert Eyes Bilateral: positive Normal inspection, EOMI and No scleral icterus Neck: positive Nml inspection Respiratory: positive Chest non-tender, No respiratory distress and Breath sounds nml Cardiovascular: positive Regular rate & rhythm, No murmur and No gallop Abdomen: positive Non-tender, No organomegaly and Nml bowel sounds Back: positive Nml inspection Skin: positive Color nml and Other (Ecchymosis noted to B/L shins around knee cap. ) Extremities: positive Non-tender; negative Calf tenderness Neurologic/Psychiatric: positive Oriented x3 and Other (Mildly restless. Improving tremor of hands that will occasionally be distractable. ) Lab Results 09/03/24 07:48 09/05/24 05:00 Other Labs: Lab Results x24hrs 09/05/24 Range/Units 05:00 VBG pH 7.344 (7.31-7.41) Ionized Calcium 1.26 (1.09-1.30) mmol/L Sodium 137 (135-145) mmol/L Potassium 5.1 H (3.5-4.5) mmol/L Chloride 105 (101-111) mmol/L Carbon Dioxide 25 (21-32) mmol/L Anion Gap 7.0 (6-13) BUN 9 (6-20) mg/dL Creatinine 0.7 (0.6-1.3) mg/dL Estimated GFR (MDRD) 130 (>89) Glucose 103 (74-104) mg/dL Calcium 10.1 (8.5-10.3) mg/dL Assessment/Plan Problem List (1) Alcohol withdrawal syndrome with complication: Impression: * Patient initially presented 09/02/24 from [facility] outpatient detox, entered on 08/31/24, with complicated alcohol withdrawal. He was given 10mg IV diazepam and 2mg IV haloperidol with management of symptoms. * Patient has mild tremors this morning * CIWA protocol along with benzodiazepine was discontinued yesterday * Given that he still has some mild tremors and tachycardia, I suspect he may still be going through withdrawal so I will start Librium * PT/OT was ordered to evaluate unsteady gait and was not cleared for D/C as he is unable to ambulate on his own. Instability and stregnth is expected to improve within the next few days and will re-assess for discharge at that time. (2) Hypomagnesemia: Impression: -Likely secondary to alcohol-induced tubular dysfunction. Resolved after replacement. (3) Elevated liver enzymes: Impression: -Most likely secondary to alcohol dependency. (4) Hypokalemia: Impression: -Likely due to nutritional deficiency from alcohol abuse. Resolved after replacement, last value today of 4.0.
[2024-09-05] MEDS: NICOTINE 14 MG PATCH TOP SCH (18:30)
[2024-09-06 11:02] VITALS: BP 117/87; TEMP 97.9; O2SAT 98
--- NOTE | 2024-09-06 14:35 | Discharge Summary ---
Discharge Summary Admit Date: 09/02/24 Discharge Date: 09/06/24 Discharging Provider: Manjinder Langley MD Code Status: Attempt Resuscitation DIAGNOSES Admission Diagnoses: Alcohol withdrawl Hallucinations Tremors Hypomagnesemia Acute encephalopathy Discharge Diagnoses with Status of Each Condition: Alcohol withdrawalresolved HPI History of Present Illness: 34 y old male with PMH alcohol abuse brought in to the ER from outpatient drug rehab facility due to tremors, shakiness and alcohol withdrawl. Per ER physician, pt was hallucinating and tachycardic, IN ER, pt was given valium and haldol iv . Pt is confused and uanble to provide any histiory at this time Labs showed low magnesium which was replaced in ER Pt is admitted due to alcohol withdrawl HOSPITAL COURSE Hospital Course: Patient was admitted to the telemetry unit where he was managed with [facility] protocol for alcohol withdrawal. He continued to have gradual improvement after initially being started on IV diazepam, haloperidol, and gabapentin. In the last 48 hours of hospital admission the patient did not require any Ativan, however he did have tachycardia with heart rates in the 120s on the rest so he was started on Librium on 09/05/2024 and discharged on 09/06/2024. On the day of discharge his vitals were all normal including heart rate and his tremors were nearly completely resolved and he was back to his mental baseline status. He was requesting prescriptions for naltrexone and disulfiram, which were provided in addition to multivitamin and thiamine. Patient will be seeking admission to inpatient rehab facility. ALLERGIES Allergies Allergy/AdvReac Type Severity Reaction Status Date / Time No Known Drug Allergies Allergy Verified 09/02/24 04:50 MEDICATIONS Ambulatory Orders Medication Instructions Recorded Confirmed chlordiazepoxide HCl 25 mg capsule 25 mg PO Q6HR 3 day s #10 caps 09/06/24 famotidine 20 mg tablet 20 mg PO BID 30 days #60 tab s 09/06/24 nicotine 14 mg/24 hr daily 1 patch topical DAILY 1 wee k #7 ea 09/06/24 transdermal patch vit,calcium 27-ferrous 1 tab PO DAILYWM 30 da ys #30 tabs 09/06/24 fum 60 mg iron-folic acid 1 mg tablet (Trinatal Rx 1) thiamine mononitrate (vit B1) 100 100 mg PO DAILY 30 d ays #30 tabs 09/06/24 mg tablet PHYSICAL EXAM AT DISCHARGE Vital Signs: Vital Signs x48h Temp Pulse Resp BP Pulse Ox O2 Flow Rate 09/06/24 11:01 36.6 C 87 18 117/87 98 0 General Appearance: positive No acute distress and Alert Respiratory: positive No respiratory distress and Breath sounds nml; negative Wheezes Cardiovascular: positive Regular rate & rhythm, No murmur and No gallop Abdomen: positive Non-tender, No organomegaly, Nml bowel sounds and No distention Skin: positive Color nml; negative Cyanosis Extremities: positive Nml appearance Neurologic/Psychiatric: positive Oriented x3, CN's nml (2-12) and Motor nml LABS 09/03/24 07:48 09/05/24 05:00 DIAGNOSTIC IMAGING Diagnostic Imaging Results: Final report reviewed TIME SPENT Time Spent in Discharge (Minutes): 45 Discharge Plan Discharge Patient Disposition: 01 Home, Self Care Condition: Good Medically Cleared Date:: 09/06/24 Prescriptions: New chlordiazepoxide HCl 25 mg Capsule 25 mg PO Q6HR 3 Days Qty: 10 0RF nicotine 14 mg/24 hr Patch 24 Hour 1 patch topical DAILY 7 Days Qty: 7 0RF famotidine 20 mg Tablet 20 mg PO BID 30 Days Qty: 60 0RF Trinatal Rx 1 60 mg iron-1 mg Tablet 1 tab PO DAILYWM 30 Days Qty: 30 0RF thiamine mononitrate (vit B1) 100 mg Tablet 100 mg PO DAILY 30 Days Qty: 30 0RF Print Language: Indonesian Patient Instructions: Alcohol Use Disorder: Getting Help, Alcohol Withdrawal: What to Expect Stand Alone Forms: PCP List
== END 2024-09-06 14:20 | disposition home or self-care (01) | DRG 897 ==
LOC: ED 04:39 → MS2 08:15 → ICU 19:27 → MS2 09-04 20:35
PROVIDERS: ADMIT Internal Medicine; ATTEND Internal Medicine
DX: I10 Essential (primary) hypertension; E87.6 Hypokalemia; Z87.891 Personal history of nicotine dependence; E83.42 Hypomagnesemia; R26.81 Unsteadiness on feet; F10.139 Alcohol abuse with withdrawal, unspecified; R74.01 Elevation of levels of liver transaminase levels; G93.40 Encephalopathy, unspecified